=== PATIENT | female | born 1970 | race American Indian/Alaskan Native ===

== ENCOUNTER 2017-12-27 06:35 | Emergency (ER) | payer OTHER ==
[2017-12-27] MEDS ORDERED: ASPIRIN PO ONE (09:31)
[2017-12-27 10:08] LABS: Basophils % (Auto) 0.3 % (0.0-1.8); Eosinophils % (Auto) 0.2 % (0.0-4.3); Hematocrit 37.7 % (30.3-42.9); Hemoglobin 12.9 gm/dl (10.1-14.3); Lymphocytes # (Auto) 0.9 K/mm3 (1.2-5.4); Lymphocytes % (Auto) 26.4 % (13.4-35.0); Mean Corpuscular HGB Conc 34 % (30-34); Mean Corpuscular Hemoglobin 34 pg (28-32); Mean Corpuscular Volume 98 fl (79-97); Monocytes # (Auto) 0.4 K/mm3 (0.0-0.8); Monocytes % (Auto) 10.4 % (0.0-7.3); Platelet Count 186 K/mm3 (140-440); Red Blood Count 3.83 M/mm3 (3.65-5.03); Red Cell Distribution Width 12.6 % (13.2-15.2)
[2017-12-27 10:19] LABS: BUN/Creatinine Ratio 10; Blood Urea Nitrogen 7 mg/dL (7-17); Calcium 8.9 mg/dL (8.4-10.2); Hemolysis Index 8
[2017-12-27 10:47] LABS: Free T4 (Free Thyroxine) 1.36 ng/dL (0.76-1.46)
[2017-12-27 11:46] VITALS: BP 123/77
--- NOTE | 2017-12-27 11:47 | XRay Report ---
ROUTINE CHEST, TWO VIEWS: Palpitations. PA and lateral views demonstrate the heart and mediastinal contour to be of normal size and shape. The lungs are clear and fully expanded and the soft tissues and bony structures are normal. IMPRESSION: Normal study.
--- NOTE | 2017-12-27 11:54 | Emergency Department Report ---
ED Palpitations HPI - General Chief Complaint: Arrhythmia/Palpitations Stated Complaint: THYROID SHAREE Time Seen by Provider: 12/27/17 11:51 Source: patient Mode of arrival: Ambulatory Limitations: No Limitations - History of Present Illness Initial Comments: Patient is a 47-year-old [place] female who is on Synthroid secondary to thyroid removal several years ago who is presenting status post palpitations. Patient states this morning she woke up with a heart rate of 159. The patient' s states that her symptoms are now resolved and she feels fine. Patient has been taking amoxicillin and Robitussin for a upper respiratory infection/sinus infection. Patient has had no fever status and states he has a mild cough currently and is getting better. Patient does still have some mild productive cough with yellow sputum. Again patient states at this time she feels fine - Related Data Allergies Allergy/AdvReac Type Severity Reaction Status Date / Time dexamethasone [From Decadron] Allergy Diarrhea Verified 12/27/17 07:05 methimazole Allergy Dizziness Verified 12/27/17 07:04 methylprednisolone Allergy Dizziness Verified 12/27/17 07:05 [From Medrol] ED Review of Systems ROS: Stated complaint: THYROID SHAREE Other details as noted in HPI Comment: All other systems reviewed and negative ED Past Medical Hx - Past Medical History Previous Medical History?: Yes Additional medical history: Thyroid disease - Surgical History Past Surgical History?: Yes Additional Surgical History: thyroid removal - Social History Smoking Status: Never Smoker Substance Use Type: None ED Physical Exam - General Limitations: No Limitations General appearance: alert, in no apparent distress - Head Head exam: Present: atraumatic, normocephalic - Eye Eye exam: Present: normal appearance - ENT ENT exam: Present: mucous membranes moist - Neck Neck exam: Present: normal inspection - Respiratory Respiratory exam: Present: normal lung sounds bilaterally. Absent: respiratory distress - Cardiovascular Cardiovascular Exam: Present: regular rate, normal rhythm. Absent: systolic murmur, diastolic murmur, rubs, gallop - GI/Abdominal GI/Abdominal exam: Present: soft, normal bowel sounds - Extremities Exam Extremities exam: Present: normal inspection - Back Exam Back exam: Present: normal inspection - Neurological Exam Neurological exam: Present: alert, oriented X3 - Psychiatric Psychiatric exam: Present: normal affect, normal mood - Skin Skin exam: Present: warm, dry, intact, normal color. Absent: rash ED Course Vital Signs 12/27/17 12/27/17 06:57 11:45 Temperature 98.8 F 99.1 F Pulse Rate 101 H 87 Respiratory 17 14 Rate Blood Pressure 125/82 Blood Pressure 123/77 [Right] O2 Sat by Pulse 96 100 Oximetry ED Medical Decision Making - Lab Data Result diagrams: 12/27/17 09:46 12/27/17 09:45 - EKG Data -: EKG Interpreted by Me EKG shows normal: axis, intervals, QRS complexes, ST-T waves Rate: tachycardia (tachycardic at 104 but his sinus) - EKG Data Interpretation: normal EKG - Medical Decision Making Patient is a 47-year-old [place] female who is presenting with mild tachycardia. Patient states her rate was much more elevated this morning. Patient does have a low TSH level indicative of some mild hyperthyroidism but is on Synthroid. Patient has an appointment to see her primary physician in one hour and will be discharged home to follow with her primary physician today for further management. Patient is stable for discharge Critical care attestation.: If time is entered above; I have spent that time in minutes in the direct care of this critically ill patient, excluding procedure time. ED Disposition Clinical Impression: Tachycardia Disposition: DC-01 TO HOME OR SELFCARE Is pt being admited?: No Does the pt Need Aspirin: No Condition: Stable Referrals: STACY KUMAR [Other] - 3-5 Days
== END 2017-12-27 12:15 | disposition home or self-care (01) ==
LOC: ED 06:35
DX: R00.0 Tachycardia, unspecified (principal)
CPT/HCPCS: 36415; 71046; 80048; 84439; 84443; 84484; 85025; 93005; 93010